=== PATIENT | male | born 1990 ===

== ENCOUNTER 2017-10-04 09:21 | Emergency (ER) | payer MEDICAID ==
[~2017-10-04] VITALS: Ht 177.8 cm; Wt 66.5 kg
[2017-10-04 09:24] VITALS: Ht 177.8 cm; Wt 66.5 kg
[2017-10-04 12:58] VITALS: BP 118/77
== END 2017-10-04 12:58 | disposition home or self-care (01) ==
LOC: ED 09:21
DX: S20.212A Contusion of left front wall of thorax, initial encounter (principal); V00.311A Fall from snowboard, initial encounter; Y93.23 Activity, snow (alpine) (downhill) skiing, snowboarding, sledding, tobogganing and snow tubing; Y99.8 Other external cause status; Y92.89 Other specified places as the place of occurrence of the external cause